=== PATIENT | male | born 1960 | race Caucasian/White ===

== ENCOUNTER 2018-01-22 11:48 | Day surgery (SDC) | payer OTHER ==
[~2018-01-22] VITALS: Ht 177.8 cm; Wt 78.2 kg
[2018-01-22 12:17] VITALS: BP 131/84
[2018-01-22] MEDS ORDERED: FINA1TAB16 PO (12:24)
[2018-01-22] MEDS ORDERED: ATOR20TA9 PO (12:24)
[2018-01-22] MEDS ORDERED: PLEASE ENTER ALLERGIES MC SCH (12:30)
[2018-01-22] MEDS ORDERED: PROPOFOL 10 MG/ML, 20ML ONE ×3 (12:35→13:09)
[2018-01-22] MEDS ORDERED: CEFAZOLIN 1,000 MG ONE ×2 (12:58)
[2018-01-22] MEDS ORDERED: WATER-INJECTION,STERILE 10 ML IV ONE (12:58)
[2018-01-22] MEDS ORDERED: LIDOCAINE-MPF 1%, 2ML INFIL ONE (13:00)
[2018-01-22] MEDS ORDERED: LACTATED RINGERS 1,000 ML IV SCH (13:00)
== END 2018-01-22 14:25 ==
LOC: OUT 11:48
PROVIDERS: ATTEND Internal Medicine
DX: K86.9 Disease of pancreas, unspecified (principal); E78.5 Hyperlipidemia, unspecified
CPT/HCPCS: 43242; J0690; J2704; J7120